=== PATIENT | male | born 1985 | race Caucasian/White ===

== ENCOUNTER 2020-11-11 16:21 | Emergency (ER) | payer OTHER ==
[2020-11-11 17:18] LABS: BASOPHIL 0.4 % (0-2); EOSINOPHIL 4.8 % (0-5); HCT 38.1 % (42.0-52.0); HGB 12.9 g/dl (13.2-18.0); LYMPHOCYTE 17.3 % (15-48); MCHC 33.9 g/dL (32.0-36.0); MCV 88.6 fL (78.0-100.0); MONOCYTE 7.8 % (0-12); MPV 8.9 fL (6.0-9.5); NEUTROPHIL 69.3 % (41-80); NRBC 0; PLT 255 K/uL (150-400); RDW 11.7 % (11.5-14.0); WBC 8.1 K/uL (4.0-10.5)
[2020-11-11 17:34] LABS: ALBUMIN 3.6 g/dL (3.4-5.0); BILIRUBIN - TOTAL 0.7 mg/dL (0.2-1.0); BUN/CREAT RATIO (CALC) 20.7 RATIO; CREATININE 0.92 mg/dL (0.67-1.17); GLOBULIN (CALCULATION) 3.8 g/dL; POTASSIUM 3.6 mmol/L (3.5-5.1); TOTAL PROTEIN 7.4 g/dL (6.4-8.2)
[2020-11-11] MEDS ORDERED: AUGMENTIN 875-1 EACH PO (19:01)
== END 2020-11-11 19:13 | disposition home or self-care (01) ==
LOC: FER 16:21
PROVIDERS: Nurse Practitioner Family
DX: L03.116 Cellulitis of left lower limb (principal)
CPT/HCPCS: 36415; 80053; 84550; 85025; 85379; 93971